=== PATIENT | female | born 1995 | race Asian ===

== ENCOUNTER 2016-07-20 19:34 | Emergency (ER) | payer BC ==
[2016-07-20] MEDS ORDERED: NS 0.9% 1000 ML* 1,000 ML IV ONE (19:58)
[2016-07-20] MEDS ORDERED: Ketorolac INJ* 30 MG/ML 1 ML VIAL IV PUSH ONE (19:58)
--- NOTE | 2016-07-20 20:05 | ED ---
HPI Febrile Illness - HPI Summary HPI Summary: Patient presents for delayed evaluation of fever. She has been dealing with URI , myalgia, cough for the last 5 days without allev by motrin 400 mg. Started Monday around 4 am and has lasted for the last 4 days without relief, except during an urgent care appointment during which she was influenza swabbed and given popsicles with relief. Recurred later that night and yesterday/today. Some sick contacts. Po hydrating with water during this time, but with less appetite for po solids. Denies chest pain, headache or neck pain, uti sx, shortness of breath. No recent antibiotics. - History of Current Complaint Chief Complaint: EDFever Time Seen by Provider: 07/20/16 19:42 Onset/Duration: Started Days Ago Timing: Constant, Lasting Days Initial Severity: Moderate Current Severity: Moderate Pain Intensity: 6 - Additional Pertinent History Primary Care Physician: [facility] - Allergy/Home Medications Allergies/Adverse Reactions: Allergies Allergy/AdvReac Type Severity Reaction Status Date / Time Acetaminophen Allergy Nausea Verified 07/20/16 19:37 PMH/Surg Hx/FS Hx/Imm Hx Previously Healthy: Yes Cardiovascular History: Denies: Other Cardiovascular Problems/Disorders Respiratory History: Reports: Hx Asthma Denies: Other Respiratory Problems/Disorders Sensory History: Reports: Hx Contacts or Glasses Opthamlomology History: Reports: Hx Contacts or Glasses Neurological History: Reports: Hx Migraine - following a severe concussion in 2012 Denies: Other Neuro Impairments/Disorders Psychiatric History: Reports: Hx Anxiety, Hx Depression, Hx Panic Disorder - Panic attacks 5-7x/year, Hx Suicide Attempt Denies: Hx Eating Disorder, Hx Inpatient Treatment, Hx Community Mental Health Tx, Hx of Violent Episodes Against Others, Other Psychiatric Issues/ Disorders - Immunization History Date of Influenza Vaccine: Never Infectious Disease History: No Infectious Disease History: Denies: Traveled Outside the [place] in Last 30 Days - Social History Alcohol Use: None Substance Use Type: Reports: None Smoking Status (MU): Never Smoked Tobacco Review of Systems Positive: Fever, Chills Negative: Photophobia, Blurred Vision, Diplopia Positive: Sore Throat, Nasal Discharge Negative: Palpitations, Chest Pain Positive: Cough. Negative: Shortness Of Breath Negative: Diarrhea Genitourinary: Negative Positive: no symptoms reported. Negative: burning Positive: Myalgia Negative: Rash Negative: Headache All Other Systems Reviewed And Are Negative: Yes Physical Exam Triage Information Reviewed: Yes Vital Signs On Initial Exam: Initial Vitals Temp Pulse Resp BP Pulse Ox 103.6 F 118 20 141/85 99 07/20/16 19:36 07/20/16 19:36 07/20/16 19:36 07/20/16 19:36 07/20/16 19:36 Vital Signs Reviewed: Yes Appearance: Positive: Well-Appearing, No Pain Distress, Well-Nourished Skin: Positive: Warm, Skin Color Reflects Adequate Perfusion, Dry Head/Face: Positive: Normal Head/Face Inspection Eyes: Positive: Normal, EOMI, ARIEL, Conjunctiva Clear ENT: Positive: Normal ENT inspection, Hearing grossly normal, Pharyngeal erythema, Nasal congestion, TMs normal, Other - Posterior oropharyngeal streaking. Negative: Nasal drainage, Tonsillar swelling, Tonsillar exudate, Trismus, Muffled/hoarse voice, Dental tenderness Dental: Positive: Percussion Tenderness @, Gross Decay/Caries @, Other - Dental caries at 28. Negative: Dental Fracture @ Neck: Positive: Supple, Nontender, Enlarged Nodes @ - mobile anterior cervical adenopathy Respiratory/Lung Sounds: Positive: Clear to Auscultation, Breath Sounds Present Cardiovascular: Positive: RRR, Pulses are Symmetrical in both Upper and Lower Extremities Abdomen Description: Positive: Nontender, No Organomegaly, Soft. Negative: CVA Tenderness (R), CVA Tenderness (L) Musculoskeletal: Positive: Normal, Strength/ROM Intact Neurological: Positive: Normal, Sensory/Motor Intact, Alert, Oriented to Person Place, Time, CN Intact II-III, Reflexes Intact, Normal Gait. Negative: Cerebellar Dysfunction Diagnostics - Vital Signs Vital Signs Temp Pulse Resp BP Pulse Ox 07/20/16 19:36 103.6 F 118 20 141/85 99 - Laboratory Result Diagrams: 07/20/16 21:05 Lab Statement: Any lab studies that have been ordered have been reviewed, and results considered in the medical decision making process. Course/Dx - Febrile Illness Differential Diagnoses: Pneumonia, Viremia, Other: - Primary concern for viral URI causing influenza like illness. Nontoxic, but miserable appearing with mild dehydration and insensible losses. Clear lung sounds and soft abdomen. - Diagnoses Provider Diagnoses: Influenza A Discharge - Discharge Plan Condition: Improved Disposition: HOME Prescriptions: Albuterol HFA INHALER* [Ventolin HFA Inhaler*] 2 puff INH Q6H PRN #1 mdi PRN Reason: Cough Benzonatate CAP* [Tessalon CAP*] 100 mg PO TID #20 cap Patient Education Materials: Influenza (ED), Acute Bronchitis (ED), Viral Syndrome (ED) Additional Instructions: You can take Motrin (Ibuprofen) 600 mg every 6 to 12 hours for fever and body aches. Try alternating this with Acetaminophen (Tylenol) 975 to 1000 mg every 6 to 12 hours. No more than 3000 mg of Tylenol per day to prevent liver damage.
--- NOTE | 2016-07-20 20:20 | RAD ---
INDICATION: Cough COMPARISON: None TECHNIQUE: PA and lateral dual-energy views were obtained. FINDINGS: Bones/Soft Tissues: There are no acute bony findings. Cardiomediastinal: The cardiomediastinal silhouette is normal. Lungs: There are no infiltrates. Pleura: There are no pleural effusions. Other: None IMPRESSION: NO ACTIVE DISEASE.
[2016-07-20 21:25] LABS: Hematocrit 41 % (35-47); Hemoglobin 13.7 g/dl (12.0-16.0); Mean Corpuscular HGB Conc 34 g/dl (31-36); Mean Corpuscular Hemoglobin 29 pg (27-31); Mean Corpuscular Volume 86 fL (80-97); Mean Platelet Volume 8 um3 (7.4-10.4); Red Blood Count 4.72 10^6/ul (4.0-5.4); Red Cell Distribution Width 13 % (10.5-15); White Blood Count 5.4 10^3/ul (3.5-10.8)
[2016-07-20 21:32] LABS: Urine Bacteria Absent (Absent); Urine Bilirubin Negative (Negative); Urine Glucose Negative (Negative); Urine Nitrite Negative (Negative)
[2016-07-21 00:39] VITALS: BP 102/63
== END 2016-07-21 00:38 | disposition home or self-care (01) ==
LOC: ED 19:34
DX: J11.1 Influenza due to unidentified influenza virus with other respiratory manifestations (principal); J02.9 Acute pharyngitis, unspecified; R05 Cough; R50.9 Fever, unspecified
CPT/HCPCS: 36415; 71020; 81003; 81015; 85027; 87502; 87651; 96374; 99282; J1885